=== PATIENT | female | born 1955 | race Asian ===

== ENCOUNTER 2020-01-11 19:57 | Emergency (ER) | payer OTHER ==
[~2020-01-11] VITALS: Ht 160 cm; Wt 59.1 kg
[~2020-01-11 19:57] MED LIST: BENZ1TAB10 PO; DIVA250T45 PO; FLUP10 PO; GLIP5 PO; LISI-660 PO; METF-960 PO
[2020-01-11 20:45] LABS: GLUCOSE,POINT OF CARE 123 MG/DL (70-110)
[2020-01-12 00:01] VITALS: BP 135/74
== END 2020-01-12 00:10 | disposition home or self-care (01) ==
LOC: EDUNIT# 19:57 → EMS 19:58
DX: S01.01XA Laceration without foreign body of scalp, initial encounter (principal); D11.0 Benign neoplasm of parotid gland; Z79.899 Other long term (current) drug therapy; W01.0XXA Fall on same level from slipping, tripping and stumbling without subsequent striking against object, initial encounter; Y93.01 Activity, walking, marching and hiking; Y92.89 Other specified places as the place of occurrence of the external cause; Y99.8 Other external cause status
CPT/HCPCS: 12001; 70450